=== PATIENT | female | born 1980 | race African-American/Black ===

== ENCOUNTER 2017-08-05 12:46 | Emergency (ER) | payer OTHER ==
[~2017-08-05] VITALS: Ht 160 cm; Wt 110.0 kg
[2017-08-05] MEDS ORDERED: ACETAMINOPHEN 325MG TABLET PO ONE (14:15)
[2017-08-05 14:20] LABS: BASOPHILS % 1.3 % (0.0-2.0); HEMATOCRIT. 36.6 % (36.0-48.0); HEMOGLOBIN. 12.1 g/dL (12.0-16.0); LYMPHOCYTES % 36.6 % (20.0-50.0); MEAN CORPUSCULAR HEMOGLOBIN 30.6 pg (28.0-32.0); MEAN CORPUSCULAR VOLUME 92.7 fL (81.0-99.0); MEAN PLATELET VOLUME 7.6 fl (7.4-10.4); MONOCYTES % 10.3 % (2.0-8.0); NEUTROPHILS % 49.8 % (40.0-76.0); PLATELET 323 x1000/uL (130-400); RED BLOOD CELL COUNT 3.94 mill/uL (4.2-5.4); RED CELL DISTRIBUTION WIDTH 13.4 % (11.6-14.6)
[2017-08-05 14:22] LABS: CHLORIDE 103 mEq/L (98-107)
[2017-08-05 14:30] LABS: CLARITY URINE CLOUDY (CLEAR); COLOR URINE YELLOW (YELLOW); KETONES URINE TRACE (NEGATIVE); LEUKOCYTE ESTERASE URINE 1+ (NEGATIVE); NITRITE URINE NEGATIVE (NEGATIVE); OCCULT BLOOD URINE 3+ (NEGATIVE); PH URINE 7.5 (4.5-8.0); PROTEIN URINE 1+ (NEGATIVE); SPECIFIC GRAVITY URINE 1.019 (1.005-1.030)
[2017-08-05 14:46] LABS: B-HCG QUANTITATIVE 7169 mIU/mL (<3)
[2017-08-05 16:34] VITALS: BP 130/90
== END 2017-08-05 16:36 | disposition home or self-care (01) ==
LOC: ER 14:01
DX: O20.0 Threatened abortion (principal); Z3A.10 10 weeks gestation of pregnancy; Z98.890 Other specified postprocedural states
CPT/HCPCS: 36415; 76801; 80053; 81003; 81025; 84702; 85025; 86850; 86900; 99285